=== PATIENT | male | born 1980 | race Caucasian/White ===

== ENCOUNTER 2018-09-21 07:44 | Emergency (ER) | payer BC ==
[2018-09-21 08:50] VITALS: BP 167/89
--- NOTE | 2018-09-21 14:17 | ED ---
Neck Pain - HPI Summary HPI Summary: Patient is a 38-year-old male who presents to the ED with left-sided neck pain times several days. He is endorsing pain to the left side of her neck radiating into the left scapula and intermittently radiating into the left chest wall. Symptoms are worse with rotation of the neck and worse with extension of the neck, better with flexion. Denies any trauma or injury. States this never happened to him before. He states symptoms are worse after sleeping and better with heat and movement. Denies any other injuries or concerns. Denies any numbness or tingling to the ipsilateral arm. Denies any weakness bilaterally. States he has full strength into the left arm. Continues to be able to rotate about the necks, flex and extend about the neck. Continues to be able to abduct, adduct, flex and extend the left shoulder. Has not taken any [id number] medications for relief. - History of Current Complaint Chief Complaint: EDNeckComplaint Stated Complaint: PINCHED NERVE PER PT Time Seen by Provider: 09/21/18 08:06 Hx Obtained From: Patient Onset/Duration Of Injury/Symptoms: Hours Timing: Constant Onset/Duration: Sudden Onset Severity Initially: Moderate Severity Currently: Moderate Pain Intensity: 2 Pain Scale Used: 0-10 Numeric Character: Aching Aggravating Factors: Nothing Alleviating Factors: Nothing Associated Signs & Symptoms: Positive: Negative - Risk Factors Meningitis Risk Factors: Negative - Allergies/Home Medications Allergies/Adverse Reactions: Allergies Allergy/AdvReac Type Severity Reaction Status Date / Time amoxicillin [From Augmentin] Allergy Swelling Verified 09/21/18 07:56 Of Face,Lips,& Throat clavulanic acid Allergy Swelling Verified 09/21/18 07:56 [From Augmentin] Of Face,Lips,& Throat PMH/Surg Hx/FS Hx/Imm Hx Previously Healthy: Yes Cardiovascular History: Denies: Hx Pacemaker/ICD Sensory History: Denies: Hx Hearing Aid Psychiatric History: Denies: Hx Panic Disorder - Immunization History Hx Pertussis Vaccination: No Immunizations Up to Date: Yes Infectious Disease History: No Infectious Disease History: Denies: Traveled Outside the [place] in Last 30 Days - Social History Occupation: Employed Full-time Lives: With Family Alcohol Use: Occasionally Hx Substance Use: No Substance Use Type: Reports: None Hx Tobacco Use: Yes Smoking Status (MU): Former Smoker Review of Systems Constitutional: Negative Negative: Fever, Chills, Fatigue, Skin Diaphoresis Negative: Palpitations, Chest Pain Negative: Shortness Of Breath, Cough Genitourinary: Negative Positive: no symptoms reported, see HPI Positive: Arthralgia - left sided neck pain, Myalgia Skin: Negative All Other Systems Reviewed And Are Negative: Yes Physical Exam Triage Information Reviewed: Yes Vital Signs On Initial Exam: Initial Vitals Temp Pulse Resp BP Pulse Ox 97.8 F 86 18 173/138 96 09/21/18 07:54 09/21/18 07:54 09/21/18 07:54 09/21/18 07:54 09/21/18 07:54 Vital Signs Reviewed: Yes Appearance: Positive: Well-Appearing, Well-Nourished Skin: Positive: Warm, Skin Color Reflects Adequate Perfusion Head/Face: Positive: Normal Head/Face Inspection Eyes: Positive: Normal, EOMI, CHRISS, Conjunctiva Clear Neck: Positive: Supple, No Lymphadenopathy Respiratory/Lung Sounds: Positive: Clear to Auscultation, Breath Sounds Present Cardiovascular: Positive: RRR, Pulses are Symmetrical in both Upper and Lower Extremities Musculoskeletal: Positive: Pain @ - left sided neck pain radiating to the L scapula and L sided chest wall worse with movement Neurological: Positive: Alert, Oriented to Person Place, Time, Speech Normal Psychiatric: Positive: Affect/Mood Appropriate AVPU Assessment: Alert Diagnostics - Vital Signs Vital Signs Temp Pulse Resp BP Pulse Ox 09/21/18 08:49 97.9 F 83 19 167/89 97 09/21/18 07:54 97.8 F 86 18 173/138 96 - Laboratory Lab Statement: Any lab studies that have been ordered have been reviewed, and results considered in the medical decision making process. Neck Course/Dx - Course Course Of Treatment: Patient is a 38-year-old male who presents to the ED with left-sided neck pain times several days. He is endorsing pain to the left side of her neck radiating into the left scapula and intermittently radiating into the left chest wall. Symptoms are worse with rotation of the neck and worse with extension of the neck, better with flexion. Denies any trauma or injury. States this never happened to him before. He states symptoms are worse after sleeping and better with heat and movement. Denies any other injuries or concerns. Denies any numbness or tingling to the ipsilateral arm. Denies any weakness bilaterally. States he has full strength into the left arm. Continues to be able to rotate about the necks, flex and extend about the neck. Continues to be able to abduct, adduct, flex and extend the left shoulder. Has not taken any [id number] medications for relief. Discussed with the patient this is likely cervical radiculopathy. Denies any numbness or tingling at this time to the arm. Continues to be able to rotate about the neck on physical examination. No other injuries or signs of trauma. Patient is encouraged to days rest, Flexeril, massage, heat and ibuprofen. - Diagnoses Differential Dx/HQI/PQRI: Positive: Sprain, Strain Provider Diagnoses: Cervical radicular pain Discharge - Sign-Out/Discharge Documenting (check all that apply): Patient Departure Patient Received Moderate/Deep Sedation with Procedure: No - Discharge Plan Condition: Stable Disposition: HOME Prescriptions: Cyclobenzaprine TAB* [Flexeril TAB*] 10 mg PO BID PRN #10 tab PRN Reason: Spasms Patient Education Materials: Cervical Radiculopathy (ED) Forms: *Work Release Referrals: Augustin Ulloa MD [Primary Care Provider] - Additional Instructions: Ibuprofen 600mg three times daily Moist heat to the area Flexeril twice daily for muscle pain Massage - Billing Disposition and Condition Condition: STABLE Disposition: Home
== END 2018-09-21 08:49 | disposition home or self-care (01) ==
LOC: ED 07:44
DX: M54.12 Radiculopathy, cervical region (principal); Z88.1 Allergy status to other antibiotic agents; Z87.891 Personal history of nicotine dependence
CPT/HCPCS: 99282

== ENCOUNTER 2018-11-19 04:18 | Inpatient (IN) | payer BC ==
[2018-11-19] MEDS ORDERED: Ketorolac INJ* 30 MG/ML 1 ML VIAL IV ONE (05:47)
[2018-11-19] MEDS ORDERED: NS 0.9% 1000 ML** 1,000 ML IV ONE (05:47)
[2018-11-19 05:48] LABS: ABS Eosinophils 0.1 10^3/ul (0-0.6); ABS Lymphocytes 0.8 10^3/ul (1.0-4.8); ABS Monocytes 0.5 10^3/ul (0-0.8); ABS Neutrophils 8.1 10^3/ul (1.5-7.7); Eosinophil % 1.1 %; Hematocrit 44 % (42-52); Hemoglobin 15.4 g/dL (14.0-18.0); Lymphocyte % 8.4 %; Mean Corpuscular HGB Conc 35 g/dL (31-36); Mean Corpuscular Hemoglobin 34 pg (27-31); Mean Corpuscular Volume 96 fL (80-94); Mean Platelet Volume 7.6 fL (7.4-10.4); Nucleated Red Blood Cells % 0.1; Platelet Count 225 10^3/uL (150-450); Red Blood Count 4.57 10^6 /uL (4.18-5.48); Red Cell Distribution Width 12 % (10-15); White Blood Count 9.5 10^3/uL (3.5-10.8)
[2018-11-19] MEDS ORDERED: Levofloxacin 750 MG IVPREMIX(* 750 MG/150 ML BAG IVPB ONE (05:48)
[2018-11-19 06:07] LABS: Troponin I 0.02 ng/mL (<0.04)
[2018-11-19 06:11] LABS: Albumin 3.8 g/dL (3.2-5.2); Albumin/Globulin Ratio 1.3 (1-3); BUN/Creatinine Ratio 12.7 (8-20); Calcium 8.7 mg/dL (8.6-10.3); EGFR African American 150.2 (>60); EGFR Non-African American 124.2 (>60); Globulin 2.9 g/dL (2-4); Total Bilirubin 0.9 mg/dL (0.2-1.0); Total Protein 6.7 g/dL (6.4-8.9)
--- NOTE | 2018-11-19 06:43 | ED ---
Shortness of Breath - HPI Summary HPI Summary: This patient is a 38 year old M presenting to [facility] accompanied by father with a chief complaints of shortness of breath, chest pain, cough 11/17/18 and spider bites 11/15/18. Patient states that he was treated for the two spider bites and prescribed doxycycline, which he has been compliant with. He states that 2 days ago he had cough, shortness of breath, and fevers at home. He took ibuprofen at home for fever. He became more short of breath and felt worse he came to the ED. Patient denies tobacco use or vaping, denies PMHX. The patient rates the pain 8/10 in severity per assessment clinician. - History of Current Complaint Chief Complaint: EDChestPainROMI Time Seen by Provider: 11/19/18 04:44 Hx Obtained From: Patient, Family/[employer] - father Onset/Duration: Lasting Hours, Still Present Timing: Constant Current Severity: Moderate Dyspnea At: Rest Aggravating Factors: Nothing Alleviating Factors: Nothing Associated Signs & Symptoms: Chest Pain Unrelated to Cough - Allergy/Home Medications Allergies/Adverse Reactions: Allergies Allergy/AdvReac Type Severity Reaction Status Date / Time amoxicillin [From Augmentin] Allergy Swelling Verified 11/19/18 04:43 Of Face,Lips,& Throat clavulanic acid Allergy Swelling Verified 11/19/18 04:43 [From Augmentin] Of Face,Lips,& Throat PMH/Surg Hx/FS Hx/Imm Hx Cardiovascular History: Denies: Hx Pacemaker/ICD Sensory History: Denies: Hx Legally Blind, Hx Deafness Opthamlomology History: Denies: Hx Legally Blind EENT History: Denies: Hx Deafness Psychiatric History: Denies: Hx Panic Disorder Infectious Disease History: No Infectious Disease History: Denies: Traveled Outside the [place] in Last 30 Days - Family History Known Family History: Positive: Hypertension Negative: Diabetes - Social History Alcohol Use: Occasionally Hx Substance Use: No Substance Use Type: Reports: None Hx Tobacco Use: Yes Smoking Status (MU): Never Smoked Tobacco Review of Systems Negative: Fever Positive: Chest Pain Positive: Shortness Of Breath, Cough Positive: Other - 2 Spider bites All Other Systems Reviewed And Are Negative: Yes Physical Exam - Summary Physical Exam Summary: Constitutional: Well-developed, Well-nourished, Alert. (-) Distressed Skin: Small lesions/area of erythema to left-sided of back HENT: Normocephalic; Atraumatic Eyes: Conjunctiva normal Neck: Musculoskeletal ROM normal neck. (-) JVD, (-) Stridor Cardio: Rhythm regular, tachycardic, Heart sounds normal; Intact distal pulses; Radial pulses are 2+ and symmetric. (-) Murmur Pulmonary/Chest wall: Mildly increased work of breathing, right-sided rhonchi, no wheezing Abd: Soft, (-) tenderness, (-) Distension, (-) Guarding, (-) Rebound Musculoskeletal: (-) Edema Lymph: (-) Cervical adenopathy Neuro: Alert, Oriented x3 Psych: Mood and affect Normal Triage Information Reviewed: Yes Vital Signs On Initial Exam: Initial Vitals Temp Pulse Resp BP Pulse Ox 99.1 F 116 20 120/95 92 11/19/18 04:20 11/19/18 04:20 11/19/18 04:20 11/19/18 04:20 11/19/18 04:20 Vital Signs Reviewed: Yes Diagnostics - Vital Signs Vital Signs Temp Pulse Resp BP Pulse Ox 11/19/18 05:36 110 125/86 91 11/19/18 05:06 110 121/77 93 11/19/18 05:00 194 93 11/19/18 04:38 110 93 11/19/18 04:36 110 131/91 91 11/19/18 04:20 99.1 F 116 20 120/95 92 - Laboratory Lab Results: Lab Results 11/19/18 11/19/18 11/19/18 Range/Units 05:37 05:38 05:38 WBC 9.5 (3.5-10.8) 10^3/uL RBC 4.57 (4.18-5.48) 10^6 /uL Hgb 15.4 (14.0-18.0) g/dL Hct 44 (42-52) % MCV 96 H (80-94) fL MCH 34 H (27-31) pg MCHC 35 (31-36) g/dL RDW 12 (10-15) % Plt Count 225 (150-450) 10^3/uL MPV 7.6 (7.4-10.4) fL Neut % (Auto) 85.5 % Lymph % (Auto) 8.4 % Teller % (Auto) 4.8 % Eos % (Auto) 1.1 % Baso % (Auto) 0.2 % Absolute Neuts (auto) 8.1 H (1.5-7.7) 10^3/ul Absolute Lymphs (auto) 0.8 L (1.0-4.8) 10^3/ul Absolute Monos (auto) 0.5 (0-0.8) 10^3/ul Absolute Eos (auto) 0.1 (0-0.6) 10^3/ul Absolute Basos (auto) 0.0 (0-0.2) 10^3/ul Absolute Nucleated RBC 0.0 10^3/ul Nucleated RBC % 0.1 Sodium 136 (135-145) mmol/L Potassium 4.0 (3.5-5.0) mmol/L Chloride 104 (101-111) mmol/L Carbon Dioxide 26 (22-32) mmol/L Anion Gap 6 (2-11) mmol/L BUN 9 (6-24) mg/dL Creatinine 0.71 (0.67-1.17) mg/dL Est GFR ( Amer) 150.2 (>60) Est GFR (Non-Af Amer) 124.2 (>60) BUN/Creatinine Ratio 12.7 (8-20) Glucose 114 H (70-100) mg/dL Calcium 8.7 (8.6-10.3) mg/dL Total Bilirubin 0.90 (0.2-1.0) mg/dL AST 15 (13-39) U/L ALT 18 (7-52) U/L Alkaline Phosphatase 55 (34-104) U/L Troponin I 0.02 (<0.04) ng/mL B-Natriuretic Peptide 66 (<=100) pg/mL Total Protein 6.7 (6.4-8.9) g/dL Albumin 3.8 (3.2-5.2) g/dL Globulin 2.9 (2-4) g/dL Albumin/Globulin Ratio 1.3 (1-3) Result Diagrams: 11/19/18 05:37 11/19/18 05:38 Lab Statement: Any lab studies that have been ordered have been reviewed, and results considered in the medical decision making process. - Radiology Chest Xray Radiology Interpretation Completed By: ED Physician Summary of Radiographic Findings: Chest Xray reveals, per ED Physician, Right upper lobe consolidation. Pending offical report. - EKG 0428 Cardiac Rate: Tachycardia - 112 bpm EKG Rhythm: Sinus Tachycardia Summary of EKG Findings: Sinus Tachycardia at 112 bpm Course/Dx - Course Course Of Treatment: 38 year-old male with recent the lightest on doxycycline presents with shortness of breath, cough. Shortness of breath ddx: Most likely PNA - right greater than left rhonchi, hypoxia, fevers at home. Will treat w levaquin. Also consider: COPD exacerbation/asthma - no h/o COPD, no wheezing on exam. Low suspicion. PTX - breath sounds equal, no risk factors for PTX, CXR w/o e/o PTX. ACS -CP with cough no EKG changes, initial trop not elevated. Low suspicion. CHF - no h/o CHF, no LANZA or orthopnea, no BLE edema, CXR w/o pulmonary edema. PE - no risk factors for PE, no unilateral leg swelling - Diagnoses Provider Diagnoses: Right upper lobe pneumonia - Physician Notifications Discussed Care of Patient With: Oralia Andre Time Discussed With Above Provider: 06:48 Instructed by Provider To: Other - Patient's case was discussed with Dr. Andre, Dr. Andre accepts for admission Discharge ED - Sign-Out/Discharge Documenting (check all that apply): Patient Departure - admitted Patient Received Moderate/Deep Sedation with Procedure: No - Discharge Plan Condition: Stable Disposition: ADMITTED TO [facility] Referrals: Augustin Ulloa MD [Primary Care Provider] - - Billing Disposition and Condition Condition: STABLE Disposition: Admitted to [facility] - Attestation Statements Document Initiated by Scribe: Yes Documenting Scribe: Julianne Lewis Provider For Whom Rocio is Documenting (Include Credential): Laura Rodriguez MD Scribe Attestation: Suzy, Julianne Lewis, scribed for Laura Rodriguez MD on 02/25 at 0739. Scribe Documentation Reviewed: Yes Provider Attestation: The documentation as recorded by the scribe, Julianne Lewis accurately reflects the service I personally performed and the decisions made by me, Laura Rodriguez MD Status of Scribe Document: Viewed
[2018-11-19 08:12] LABS: C Reactive Protein 193.69 mg/L (<8.01)
[2018-11-19] MEDS ORDERED: NS 0.9% 1000 ML** 1,000 ML IV SCH (08:15)
[2018-11-19 08:18] LABS: Influenza A Molecular NEGATIVE (Negative); Influenza B Molecular NEGATIVE (Negative)
--- NOTE | 2018-11-19 11:57 | HP ---
CC: Dr. Ulloa * HISTORY AND PHYSICAL: DATE OF ADMISSION: 11/19/18 PRIMARY CARE PROVIDER: Dr. Ulloa CHIEF COMPLAINT: Shortness of breath and chest pain. HISTORY OF PRESENT ILLNESS: Mr. Calderon is a 38-year-old male, morbidly obese, who had been having problems with cough, low-grade fevers, chills, and pleuritic chest pain when coughing in bilateral lower chest in the past couple of days. A couple days of ago, he also went to see his primary care provider and was noted to have "spider bites," for which he got doxycycline. He states he has been having some problems with pruritic areas on his left side of the chest and and left leg for the past several days. He noted that they were more red 2 days ago and went to see his see his primary care provider for that. He does have area of erythema and mild cellulitis on his left calf. In addition to the above, the patient also while evaluated in the ED was noted to have tachycardia and a large infiltrate in the right upper lobe. He is going to be placed on observation for pneumonia. PAST MEDICAL HISTORY: The patient was diagnosed with vitiligo just recently over the past year. Otherwise, he has had no surgeries, no hospitalizations, and he is taking occasional Flexeril for lower back pain. MEDICATIONS: At home include Flexeril 10 mg p.o. b.i.d. p.r.n. pain and spasm. ALLERGIES: AMOXICILLIN and CLAVULANIC ACID. FAMILY HISTORY: Positive for diabetes in father and unknown cancer in grandfather on paternal side. SOCIAL HISTORY: The patient drinks occasionally with his friends. Denies daily alcohol intake. Denies any drug or smoking tobacco history. 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 He lives alone. His children , ages 10 and 13, are with him every other week. His surrogate, he names his mom, Becky Calderon, phone number [phone]. REVIEW OF SYSTEMS: Please see the history of present illness. The remaining 12 systems were reviewed with the patient and were otherwise negative. PHYSICAL EXAMINATION GENERAL: The patient is a very pleasant 38-year-old obese male who is in no acute distress, alert, awake, and oriented x3. VITAL SIGNS: Blood pressure of 125/78, heart rate of 106 and regular, respiratory rate 20, oxygen saturation 92% on room air, temperature of 99.1. HEENT: Head atraumatic and normocephalic. Eyes: Pupils are equal and reactive to light and accommodation. Oropharynx: Clear. Mucosa moist. NECK: Supple. No JVD. No bruits bilaterally. RESPIRATORY: Rhonchi over the entire right lung on auscultation. CARDIOVASCULAR: Regular rate and rhythm. No murmur. ABDOMEN: Soft and nontender. Bowel sounds are present in all 4 quadrants. EXTREMITIES: There is no edema. Pulses are +2 bilaterally. No clubbing or cyanosis. SKIN: On evaluation of the skin, the patient has 1 excoriated, covered with eschar lesion approximately 1 x 0.5 cm on the left posterior calf that is surrounded with an area of irritated skin, may be mild cellulitis of approximately 10 cm in diameter, with no significant streaking, appears to be more skin irritation due to scratching. The patient also has 2 similar appearing areas, also covered with eschar, overlying the left chest close to the anterior axillary line at the level of the nipple. Those areas are also excoriated and covered with eschar. No cellulitis evident. The patient has discoloration of his skin in the bilateral hands related to vitiligo. PSYCHIATRIC EVALUATION: Oriented x3 with no evidence of anxiety or depression. DIAGNOSTIC STUDIES/LAB DATA: Shows sodium of 136, potassium 4.0, chloride 104, carbon dioxide 26, BUN 9, creatinine 0.71. Liver function tests unremarkable. Troponin of 0.02. C-reactive protein pending. CBC: White blood cell count of 9.5, hemoglobin of 15.4, hematocrit of 44, MCV of 96, platelets of 225. Portable chest x-ray, impression: "Right upper lung consolidation. Recommend to follow up until resolution to exclude underlying pulmonary parenchymal pathology." ASSESSMENT AND PLAN: 1. The patient presents with pneumonia. He is tachycardic, but he is not significantly tachypneic to meet sepsis criteria. He has significant right upper lobe infiltrate. He is going to be placed on ceftriaxone and azithromycin. He received Levaquin in the emergency room. The patient's sputum cultures are going to be obtained as well as urinary legionella and Strep pneumo antigens. He is going to be placed on overnight observation. 2. In regards to the patient's "spider bites." There appears to be area of excoriations and I am not sure if they are insect bites or may be eczema-like lesions. At that point, he may have mild cellulitis in the left calf, which hopefully will be treated with antibiotics used for the pneumonia. It does not appear to be related to tick bites. 3. For DVT prophylaxis. The patient is ambulatory and no risk. 4. Code status is full. His surrogate is mother. TIME SPENT: Approximately 62 minutes was spent on admission of the patient, more than half of that time was spent [id number] with the patient during the interview and physical exam. [id number]/[facility] #: [id number] MTDD
[2018-11-19] MEDS ORDERED: Acetaminophen TAB* 325 MG PO PRN (16:47)
[2018-11-19] MEDS: cefTRIAXone(*) 1 GM in NS 0.9% 50 ML* 50 ML IVPB SCH (17:09)
[2018-11-19] MEDS: Azithromycin 500 mg/250 ml NS 500 MG/250 ML BAG IVPB SCH (17:52)
[2018-11-20 06:35] LABS: ABS Eosinophils 0.1 10^3/ul (0-0.6); ABS Lymphocytes 0.9 10^3/ul (1.0-4.8); ABS Monocytes 0.4 10^3/ul (0-0.8); Eosinophil % 2.2 %; Hematocrit 41 % (42-52); Hemoglobin 14.3 g/dL (14.0-18.0); Lymphocyte % 14.1 %; Mean Corpuscular HGB Conc 35 g/dL (31-36); Mean Corpuscular Hemoglobin 34 pg (27-31); Mean Corpuscular Volume 97 fL (80-94); Mean Platelet Volume 7.9 fL (7.4-10.4); Platelet Count 219 10^3/uL (150-450); Red Blood Count 4.24 10^6 /uL (4.18-5.48); Red Cell Distribution Width 12 % (10-15); White Blood Count 6.4 10^3/uL (3.5-10.8)
[2018-11-20 06:51] LABS: BUN/Creatinine Ratio 13.3 (8-20); Calcium 8.3 mg/dL (8.6-10.3); EGFR Non-African American 116.6 (>60); Potassium 3.9 mmol/L (3.5-5.0)
--- NOTE | 2018-11-20 13:09 | PN ---
Subjective Date of Service: 11/20/18 Interval History: Pt feels better, still coughing and c/o pleuritic CP when coughing Objective Active Medications: Acetaminophen (Tylenol Tab*) 650 mg PO Q4H PRN PRN Reason: PAIN-MILD/TEMP >/= 100.4 Last Admin: 11/19/18 17:08 Dose: 650 mg Cyclobenzaprine HCl (Flexeril Tab*) 10 mg PO BID PRN PRN Reason: SPASMS Azithromycin (Zithromax 500 Mg/250 Ml) 500 mg in 250 mls @ 250 mls/hr IVPB Q24H [facility] Last Admin: 11/19/18 17:52 Dose: 250 mls/hr Ceftriaxone Sodium 1 gm/ (Sodium Chloride) 50 mls @ 100 mls/hr IVPB Q24H [facility] Last Admin: 11/19/18 17:09 Dose: 100 mls/hr Vital Signs - 8 hr 11/20/18 07:15 Temperature 98.4 F Pulse Rate 90 Respiratory 24 Rate Blood Pressure 126/71 (mmHg) O2 Sat by Pulse 96 Oximetry Oxygen Devices in Use Now: None, Nasal Cannula Appearance: 38 yo M in nAD, aAOx3 Eyes: No Scleral Icterus, PERRLA Ears/Nose/Mouth/Throat: NL Teeth, Lips, Gums, Mucous Membranes Moist Neck: NL Appearance and Movements; NL JVP Respiratory: Symmetrical Chest Expansion and Respiratory Effort, - - rhonchi breana RUL Cardiovascular: NL Sounds; No Murmurs; No JVD, RRR Abdominal: NL Sounds; No Tenderness; No Distention Lymphatic: No Cervical Adenopathy Extremities: No Edema, No Clubbing, Cyanosis Skin: No Rash or Ulcers, No Nodules or Sclerosis, - - vitilligo noted on b/l hands Neurological: Alert and Oriented x 3, NL Muscle Strength and Tone Result Diagrams: 11/20/18 05:53 11/20/18 05:53 Additional Lab and Data: Lab Results 11/19/18 11/19/18 11/19/18 Range/Units 05:37 05:38 05:38 WBC 9.5 (3.5-10.8) 10^3/uL RBC 4.57 (4.18-5.48) 10^6 /uL Hgb 15.4 (14.0-18.0) g/dL Hct 44 (42-52) % MCV 96 H (80-94) fL MCH 34 H (27-31) pg MCHC 35 (31-36) g/dL RDW 12 (10-15) % Plt Count 225 (150-450) 10^3/uL MPV 7.6 (7.4-10.4) fL Neut % (Auto) 85.5 % Lymph % (Auto) 8.4 % Mckinley % (Auto) 4.8 % Eos % (Auto) 1.1 % Baso % (Auto) 0.2 % Absolute Neuts (auto) 8.1 H (1.5-7.7) 10^3/ul Absolute Lymphs (auto) 0.8 L (1.0-4.8) 10^3/ul Absolute Monos (auto) 0.5 (0-0.8) 10^3/ul Absolute Eos (auto) 0.1 (0-0.6) 10^3/ul Absolute Basos (auto) 0.0 (0-0.2) 10^3/ul Absolute Nucleated RBC 0.0 10^3/ul Nucleated RBC % 0.1 Sodium 136 (135-145) mmol/L Potassium 4.0 (3.5-5.0) mmol/L Chloride 104 (101-111) mmol/L Carbon Dioxide 26 (22-32) mmol/L Anion Gap 6 (2-11) mmol/L BUN 9 (6-24) mg/dL Creatinine 0.71 (0.67-1.17) mg/dL Est GFR ( Amer) 150.2 (>60) Est GFR (Non-Af Amer) 124.2 (>60) BUN/Creatinine Ratio 12.7 (8-20) Glucose 114 H (70-100) mg/dL Calcium 8.7 (8.6-10.3) mg/dL Total Bilirubin 0.90 (0.2-1.0) mg/dL AST 15 (13-39) U/L ALT 18 (7-52) U/L Alkaline Phosphatase 55 (34-104) U/L Troponin I 0.02 (<0.04) ng/mL B-Natriuretic Peptide 66 (<=100) pg/mL Total Protein 6.7 (6.4-8.9) g/dL Albumin 3.8 (3.2-5.2) g/dL Globulin 2.9 (2-4) g/dL Albumin/Globulin Ratio 1.3 (1-3) Microbiology and Other Data: Microbiology 11/20/18 10:35 Gram Stain - Final Sputum 11/19/18 18:30 Legionella Urinary Antigen - Final Urine Negative Legionella Antigen Streptococcus pneumoniae Ag Screen - Final Negative S. pneumo Antigen 11/19/18 06:07 Aerobic Blood Culture - Preliminary Blood Venous No Growth Day 1 Anaerobic Blood Culture - Preliminary No Growth Day 1 11/19/18 06:07 Aerobic Blood Culture - Preliminary Blood Venous No Growth Day 1 Anaerobic Blood Culture - Preliminary No Growth Day 1 Assess/Plan/Problems-Billing Assessment: 38 yo M presents with RUL PNA and hypoxemia - Patient Problems (1) Pneumonia Comment: community acquired. cont Ceftriaxone/Azithro Blood cx neg, sputum cx pending Strep pneumo, legionella antigen neg Today when ambulating 02 sats dropped tp 88%-due to hypoxemia will cont to treat with IV antibiotics x one more day. IS and flutter valve ordered (2) DVT prophylaxis Comment: ambulation, low risk Status and Disposition: OBV will be changed to inpatient
[2018-11-20] MEDS: cefTRIAXone(*) 1 GM in NS 0.9% 50 ML* 50 ML IVPB SCH (16:42)
[2018-11-20] MEDS: Azithromycin 500 mg/250 ml NS 500 MG/250 ML BAG IVPB SCH (17:30)
[2018-11-20] MEDS ORDERED: diPHENhydraMINE PO* 25 MG PO PRN (18:59)
[2018-11-20] MEDS ORDERED: Hydrocortisone 1% CREAM* 30 GM TUBE TOPICAL SCH (21:00)
[2018-11-20] MEDS: Cyclobenzaprine TAB* 10 MG PO PRN (22:47)
[2018-11-21] MEDS: hydrOXYzine HCL TAB* 25 MG PO PRN ×2 (00:41→08:08)
[2018-11-21] MEDS: Triamcinolone 0.5% OINT * 15 GM TUBE TOPICAL SCH ×3 (01:30→20:21)
[2018-11-21] MEDS: Cyclobenzaprine TAB* 10 MG PO PRN (08:03)
[2018-11-21] MEDS: Levofloxacin 750 MG IVPREMIX(* 750 MG/150 ML BAG IVPB SCH (08:03)
--- NOTE | 2018-11-21 10:15 | PN ---
Subjective Date of Service: 11/21/18 Interval History: last night pt developed rash on his trunk and proximal LE's, feels that his ear and forehead was swollen but that resolved. Benadryl "does not wok" for him and Atarax makes him sleepy. Breathing is "OK", still on 02,m but coughing less. Ceftriaxone and Azithromycin stopped last night. Levaquin started today Objective Active Medications: Acetaminophen (Tylenol Tab*) 650 mg PO Q4H PRN PRN Reason: PAIN-MILD/TEMP >/= 100.4 Last Admin: 11/19/18 17:08 Dose: 650 mg Cyclobenzaprine HCl (Flexeril Tab*) 10 mg PO BID PRN PRN Reason: SPASMS Last Admin: 11/21/18 08:03 Dose: 10 mg Famotidine (Pepcid Tab*) 20 mg PO BID [facility] Hydroxyzine HCl (Atarax Tab*) 25 mg PO Q6H PRN PRN Reason: rash, pruritis Last Admin: 11/21/18 08:08 Dose: 25 mg Levofloxacin/Dextrose (Levaquin 750 Mg Ivpremix(*)) 750 mg in 150 mls @ 100 mls /hr IVPB Q24H [facility]; Protocol Last Admin: 11/21/18 08:03 Dose: 100 mls/hr Methylprednisolone Sodium Succinate (Solu-Medrol 40 Mg) 40 mg IV ONCE ONE Stop: 11/21/18 12:01 Prednisone (Deltasone Tab*) 50 mg PO DAILY [facility] Triamcinolone Acetonide (Triamcinolone 0.5% Oint *) 1 applic TOPICAL BID [facility] Last Admin: 11/21/18 08:03 Dose: 1 applic Vital Signs - 8 hr 11/21/18 11/21/18 11/21/18 03:16 07:15 08:03 Temperature 98.3 F 98.4 F Pulse Rate 110 107 Respiratory 25 22 18 Rate Blood Pressure 101/60 91/65 (mmHg) O2 Sat by Pulse 96 93 Oximetry Oxygen Devices in Use Now: Nasal Cannula Appearance: 38 yo m in nAD, AAOx3 Eyes: No Scleral Icterus, PERRLA Ears/Nose/Mouth/Throat: NL Teeth, Lips, Gums, Mucous Membranes Moist Neck: NL Appearance and Movements; NL JVP, Trachea Midline Respiratory: Symmetrical Chest Expansion and Respiratory Effort, - - scant rhonchi at RUL Cardiovascular: NL Sounds; No Murmurs; No JVD, RRR Abdominal: NL Sounds; No Tenderness; No Distention Lymphatic: No Cervical Adenopathy Extremities: No Edema, No Clubbing, Cyanosis Skin: No Nodules or Sclerosis, - - diffuse erythema with more accentuated borders on trunk, back, upper thighs-resembling erythema multiforme Neurological: Alert and Oriented x 3, NL Muscle Strength and Tone Result Diagrams: 11/20/18 05:53 11/20/18 05:53 Additional Lab and Data: Lab Results 11/19/18 11/19/18 11/19/18 Range/Units 05:37 05:38 05:38 WBC 9.5 (3.5-10.8) 10^3/uL RBC 4.57 (4.18-5.48) 10^6 /uL Hgb 15.4 (14.0-18.0) g/dL Hct 44 (42-52) % MCV 96 H (80-94) fL MCH 34 H (27-31) pg MCHC 35 (31-36) g/dL RDW 12 (10-15) % Plt Count 225 (150-450) 10^3/uL MPV 7.6 (7.4-10.4) fL Neut % (Auto) 85.5 % Lymph % (Auto) 8.4 % [place] % (Auto) 4.8 % Eos % (Auto) 1.1 % Baso % (Auto) 0.2 % Absolute Neuts (auto) 8.1 H (1.5-7.7) 10^3/ul Absolute Lymphs (auto) 0.8 L (1.0-4.8) 10^3/ul Absolute Monos (auto) 0.5 (0-0.8) 10^3/ul Absolute Eos (auto) 0.1 (0-0.6) 10^3/ul Absolute Basos (auto) 0.0 (0-0.2) 10^3/ul Absolute Nucleated RBC 0.0 10^3/ul Nucleated RBC % 0.1 Sodium 136 (135-145) mmol/L Potassium 4.0 (3.5-5.0) mmol/L Chloride 104 (101-111) mmol/L Carbon Dioxide 26 (22-32) mmol/L Anion Gap 6 (2-11) mmol/L BUN 9 (6-24) mg/dL Creatinine 0.71 (0.67-1.17) mg/dL Est GFR ( Amer) 150.2 (>60) Est GFR (Non-Af Amer) 124.2 (>60) BUN/Creatinine Ratio 12.7 (8-20) Glucose 114 H (70-100) mg/dL Calcium 8.7 (8.6-10.3) mg/dL Total Bilirubin 0.90 (0.2-1.0) mg/dL AST 15 (13-39) U/L ALT 18 (7-52) U/L Alkaline Phosphatase 55 (34-104) U/L Troponin I 0.02 (<0.04) ng/mL B-Natriuretic Peptide 66 (<=100) pg/mL Total Protein 6.7 (6.4-8.9) g/dL Albumin 3.8 (3.2-5.2) g/dL Globulin 2.9 (2-4) g/dL Albumin/Globulin Ratio 1.3 (1-3) Microbiology and Other Data: Microbiology 11/20/18 10:35 Gram Stain - Final Sputum 11/19/18 18:30 Legionella Urinary Antigen - Final Urine Negative Legionella Antigen Streptococcus pneumoniae Ag Screen - Final Negative S. pneumo Antigen 11/19/18 06:07 Aerobic Blood Culture - Preliminary Blood Venous No Growth Day 1 Anaerobic Blood Culture - Preliminary No Growth Day 1 11/19/18 06:07 Aerobic Blood Culture - Preliminary Blood Venous No Growth Day 1 Anaerobic Blood Culture - Preliminary No Growth Day 1 Assess/Plan/Problems-Billing Assessment: 38 yo M presents with RUL PNA and hypoxemia - Patient Problems (1) Pneumonia Comment: community acquired. Ceftriaxone/Azithro sopped due to rah on 11/20/18, Levaquin started Blood cx neg, sputum cx pending Strep pneumo, legionella antigen neg IS and flutter valve cont (2) Erythema multiforme Comment: likely due to Ceftriaxone, but both Ceftriaxone and Azithromycin stopped. Levaquin started. Cont triamcinalone cream, start PO steroids(after an initial dose of Solu Medrol ), start Pepcid. will monitor x 1 more day for improvement before discharge (3) DVT prophylaxis Comment: ambulation, low risk Status and Disposition: OBV changed to inpatient
[2018-11-21] MEDS: Famotidine TAB* 20 MG PO SCH ×2 (11:15→20:18)
[2018-11-21 11:35] LABS: ABS Lymphocytes 0.9 10^3/ul (1.0-4.8); ABS Monocytes 0.3 10^3/ul (0-0.8); ABS Neutrophils 7.6 10^3/ul (1.5-7.7); Eosinophil % 0.3 %; Hematocrit 44 % (42-52); Hemoglobin 15.4 g/dL (14.0-18.0); Lymphocyte % 9.9 %; Mean Corpuscular HGB Conc 35 g/dL (31-36); Mean Corpuscular Hemoglobin 34 pg (27-31); Mean Corpuscular Volume 97 fL (80-94); Mean Platelet Volume 7.7 fL (7.4-10.4); Nucleated Red Blood Cells % 0.1; Platelet Count 268 10^3/uL (150-450); Red Blood Count 4.53 10^6 /uL (4.18-5.48); Red Cell Distribution Width 12 % (10-15); White Blood Count 8.8 10^3/uL (3.5-10.8)
[2018-11-21] MEDS ORDERED: methylPREDNISolone SOD 40 MG* 1 ML VIAL IV ONE (12:00)
[2018-11-21 12:09] LABS: BUN/Creatinine Ratio 16.3 (8-20); Calcium 8.3 mg/dL (8.6-10.3); EGFR African American 130.9 (>60); EGFR Non-African American 108.2 (>60)
[2018-11-21] MEDS: methylPREDNISolone 125 MG* 2 ML VIAL IV SCH (20:18)
[2018-11-22] MEDS: methylPREDNISolone 125 MG* 2 ML VIAL IV SCH ×3 (02:55→21:29)
[2018-11-22] MEDS ORDERED: Albuterol/Ipratropium NEB.SOL* Albuterol 2.5 MG/Ipratropium 0.5 MG 3 ML INH PRN (08:32)
[2018-11-22] MEDS ORDERED: Albuterol/Ipratropium NEB.SOL* Albuterol 2.5 MG/Ipratropium 0.5 MG 3 ML INH ONE (08:32)
[2018-11-22] MEDS ORDERED: predniSONE TAB* 50 MG PO SCH (09:00)
[2018-11-22] MEDS: Levofloxacin 750 MG IVPREMIX(* 750 MG/150 ML BAG IVPB SCH (09:09)
[2018-11-22] MEDS: Famotidine TAB* 20 MG PO SCH (09:25)
[2018-11-22] MEDS: Triamcinolone 0.025% OINT * 15 GM TUBE TOPICAL SCH ×2 (09:47→21:45)
[2018-11-22] MEDS: Triamcinolone 0.5% OINT * 15 GM TUBE TOPICAL SCH (10:49)
--- NOTE | 2018-11-22 11:12 | PN ---
Subjective Date of Service: 11/22/18 Interval History: Pt feels well, no cough, still LANZA. Rash on back and abdomen is resolving, but pt still has lower lip edema-mild, and hives on R arm-new Objective Active Medications: Acetaminophen (Tylenol Tab*) 650 mg PO Q4H PRN PRN Reason: PAIN-MILD/TEMP >/= 100.4 Last Admin: 11/19/18 17:08 Dose: 650 mg Albuterol/Ipratropium (Duoneb (Albuterol 2.5 Mg/Ipratropium 0.5 Mg)) 1 neb INH Q4H PRN PRN Reason: SOB/WHEEZING Cyclobenzaprine HCl (Flexeril Tab*) 10 mg PO BID PRN PRN Reason: SPASMS Last Admin: 11/21/18 08:03 Dose: 10 mg Famotidine (Pepcid Tab*) 20 mg PO BID [facility] Last Admin: 11/22/18 09:25 Dose: 20 mg Hydroxyzine HCl (Atarax Tab*) 25 mg PO Q6H PRN PRN Reason: rash, pruritis Last Admin: 11/21/18 08:08 Dose: 25 mg Levofloxacin/Dextrose (Levaquin 750 Mg Ivpremix(*)) 750 mg in 150 mls @ 100 mls /hr IVPB Q24H [facility]; Protocol Last Admin: 11/22/18 09:09 Dose: 100 mls/hr Methylprednisolone Sodium Succinate (Solu-Medrol 125mg *) 60 mg IV Q8H [facility] Last Admin: 11/22/18 02:55 Dose: 60 mg Triamcinolone Acetonide (Triamcinolone 0.025% Oint *) 1 applic TOPICAL BID [facility] Last Admin: 11/22/18 09:47 Dose: 1 applic Oxygen Devices in Use Now: Nasal Cannula Appearance: 38 yo M in nAD, AAOx3 Eyes: No Scleral Icterus, PERRLA Ears/Nose/Mouth/Throat: NL Teeth, Lips, Gums, Mucous Membranes Moist Neck: NL Appearance and Movements; NL JVP Respiratory: Symmetrical Chest Expansion and Respiratory Effort, Clear to Auscultation Cardiovascular: NL Sounds; No Murmurs; No JVD Abdominal: NL Sounds; No Tenderness; No Distention Lymphatic: No Cervical Adenopathy Extremities: No Clubbing, Cyanosis Skin: No Nodules or Sclerosis, - - rash on back and abd is recolving, lower lip erythema and mild edema noted, no oral ulcers. R arm hives noted Neurological: Alert and Oriented x 3, NL Muscle Strength and Tone Result Diagrams: 11/21/18 11:22 11/21/18 11:22 Additional Lab and Data: Lab Results 11/19/18 11/19/18 11/19/18 Range/Units 05:37 05:38 05:38 WBC 9.5 (3.5-10.8) 10^3/uL RBC 4.57 (4.18-5.48) 10^6 /uL Hgb 15.4 (14.0-18.0) g/dL Hct 44 (42-52) % MCV 96 H (80-94) fL MCH 34 H (27-31) pg MCHC 35 (31-36) g/dL RDW 12 (10-15) % Plt Count 225 (150-450) 10^3/uL MPV 7.6 (7.4-10.4) fL Neut % (Auto) 85.5 % Lymph % (Auto) 8.4 % [place] % (Auto) 4.8 % Eos % (Auto) 1.1 % Baso % (Auto) 0.2 % Absolute Neuts (auto) 8.1 H (1.5-7.7) 10^3/ul Absolute Lymphs (auto) 0.8 L (1.0-4.8) 10^3/ul Absolute Monos (auto) 0.5 (0-0.8) 10^3/ul Absolute Eos (auto) 0.1 (0-0.6) 10^3/ul Absolute Basos (auto) 0.0 (0-0.2) 10^3/ul Absolute Nucleated RBC 0.0 10^3/ul Nucleated RBC % 0.1 Sodium 136 (135-145) mmol/L Potassium 4.0 (3.5-5.0) mmol/L Chloride 104 (101-111) mmol/L Carbon Dioxide 26 (22-32) mmol/L Anion Gap 6 (2-11) mmol/L BUN 9 (6-24) mg/dL Creatinine 0.71 (0.67-1.17) mg/dL Est GFR ( Amer) 150.2 (>60) Est GFR (Non-Af Amer) 124.2 (>60) BUN/Creatinine Ratio 12.7 (8-20) Glucose 114 H (70-100) mg/dL Calcium 8.7 (8.6-10.3) mg/dL Total Bilirubin 0.90 (0.2-1.0) mg/dL AST 15 (13-39) U/L ALT 18 (7-52) U/L Alkaline Phosphatase 55 (34-104) U/L Troponin I 0.02 (<0.04) ng/mL B-Natriuretic Peptide 66 (<=100) pg/mL Total Protein 6.7 (6.4-8.9) g/dL Albumin 3.8 (3.2-5.2) g/dL Globulin 2.9 (2-4) g/dL Albumin/Globulin Ratio 1.3 (1-3) Microbiology and Other Data: Microbiology 11/20/18 10:35 Gram Stain - Final Sputum 11/19/18 18:30 Legionella Urinary Antigen - Final Urine Negative Legionella Antigen Streptococcus pneumoniae Ag Screen - Final Negative S. pneumo Antigen 11/19/18 06:07 Aerobic Blood Culture - Preliminary Blood Venous No Growth Day 1 Anaerobic Blood Culture - Preliminary No Growth Day 1 11/19/18 06:07 Aerobic Blood Culture - Preliminary Blood Venous No Growth Day 1 Anaerobic Blood Culture - Preliminary No Growth Day 1 Assess/Plan/Problems-Billing Assessment: 38 yo M presents with RUL PNA and hypoxemia - Patient Problems (1) Pneumonia Comment: community acquired. today pt's corwin s are clear on ascultation Ceftriaxone/Azithro stopped due to rash on 11/20/18, Levaquin started 11/21/18 Blood cx neg, sputum cx pending Strep pneumo, legionella antigen neg IS and flutter valve cont (2) Erythema multiforme Comment: Pt's rash is overall better, but today he has hives on R arm which is new. Also due to lip edema -will cont IV steroids for now. likely due to Ceftriaxone, but both Ceftriaxone and Azithromycin stopped. Levaquin started 11/21 Cont triamcinalone cream, cont Solu Medrol. will monitor x 1 more day for improvement before discharge (3) DVT prophylaxis Comment: ambulation, low risk Status and Disposition: OBV changed to inpatient
[2018-11-22] MEDS: hydrOXYzine HCL TAB* 25 MG PO PRN ×2 (13:05→21:54)
[2018-11-22] MEDS: CMC:LoraTADine TAB(NF) 10 MG TAB (AUTOSUB to CETIRIZINE) PO SCH (21:18)
[2018-11-22] MEDS: Famotidine IV* 10 MG/ML 2 ML (20 mg) IV SLOW PU SCH (21:27)
[2018-11-23] MEDS: methylPREDNISolone 125 MG* 2 ML VIAL IV SCH ×3 (04:15→20:04)
[2018-11-23] MEDS: hydrOXYzine HCL TAB* 25 MG PO PRN (05:50)
[2018-11-23] MEDS: Famotidine IV* 10 MG/ML 2 ML (20 mg) IV SLOW PU SCH ×2 (08:36→20:05)
[2018-11-23] MEDS: DOXYcycline CAP(*) 100 MG PO SCH ×3 (08:36→20:04)
[2018-11-23] MEDS: CMC:LoraTADine TAB(NF) 10 MG TAB (AUTOSUB to CETIRIZINE) PO SCH (08:36)
[2018-11-23] MEDS: Triamcinolone 0.025% OINT * 15 GM TUBE TOPICAL SCH ×2 (08:38→23:15)
--- NOTE | 2018-11-23 10:32 | PN ---
Subjective Date of Service: 11/23/18 Interval History: Pt is anxious about his rash that "won't stop itching" cough and SOB resolved today he noted a darker spot on the skin of his left calf that is colder to palpation Objective Active Medications: Acetaminophen (Tylenol Tab*) 650 mg PO Q4H PRN PRN Reason: PAIN-MILD/TEMP >/= 100.4 Last Admin: 11/19/18 17:08 Dose: 650 mg Albuterol/Ipratropium (Duoneb (Albuterol 2.5 Mg/Ipratropium 0.5 Mg)) 1 neb INH Q4H PRN PRN Reason: SOB/WHEEZING Cyclobenzaprine HCl (Flexeril Tab*) 10 mg PO BID PRN PRN Reason: SPASMS Last Admin: 11/21/18 08:03 Dose: 10 mg Doxycycline Hyclate (Vibramycin Cap(*)) 100 mg PO BID [facility] Last Admin: 11/23/18 08:41 Dose: 100 mg Famotidine (Pepcid Iv*) 20 mg IV SLOW PU BID [facility] Last Admin: 11/23/18 08:36 Dose: 20 mg Hydroxyzine HCl (Atarax Tab*) 25 mg PO Q6H PRN PRN Reason: rash, pruritis Last Admin: 11/23/18 05:50 Dose: 25 mg Loratadine (Claritin Tab(Nf)) 10 mg PO BID [facility] Last Admin: 11/23/18 08:36 Dose: 10 mg Methylprednisolone Sodium Succinate (Solu-Medrol 125mg *) 60 mg IV Q8H [facility] Last Admin: 11/23/18 04:15 Dose: 60 mg Triamcinolone Acetonide (Triamcinolone 0.025% Oint *) 1 applic TOPICAL BID [facility] Last Admin: 11/23/18 08:38 Dose: 1 applic Vital Signs - 8 hr 11/23/18 11/23/18 03:15 07:15 Temperature 98.3 F 97.9 F Pulse Rate 99 101 Respiratory 16 22 Rate Blood Pressure 110/60 143/75 (mmHg) O2 Sat by Pulse 94 98 Oximetry Oxygen Devices in Use Now: None Appearance: 38 yo M in nAD, aAOx3 Eyes: No Scleral Icterus, PERRLA Ears/Nose/Mouth/Throat: NL Teeth, Lips, Gums Neck: NL Appearance and Movements; NL JVP Respiratory: Symmetrical Chest Expansion and Respiratory Effort, Clear to Auscultation Cardiovascular: NL Sounds; No Murmurs; No JVD Abdominal: NL Sounds; No Tenderness; No Distention Lymphatic: No Cervical Adenopathy Extremities: No Clubbing, Cyanosis, - - left calf with mild edema and bluish discoloration of medial aspect of left calf at 5 cm in diam , colder to touch c/ w remaining skin Skin: No Nodules or Sclerosis, - - diffuse rash resembling e. multiforme on b/l thighs, back and abd is improving, no rah on face Neurological: Alert and Oriented x 3, NL Muscle Strength and Tone Result Diagrams: 11/21/18 11:22 11/21/18 11:22 Additional Lab and Data: Lab Results 11/19/18 11/19/18 11/19/18 Range/Units 05:37 05:38 05:38 WBC 9.5 (3.5-10.8) 10^3/uL RBC 4.57 (4.18-5.48) 10^6 /uL Hgb 15.4 (14.0-18.0) g/dL Hct 44 (42-52) % MCV 96 H (80-94) fL MCH 34 H (27-31) pg MCHC 35 (31-36) g/dL RDW 12 (10-15) % Plt Count 225 (150-450) 10^3/uL MPV 7.6 (7.4-10.4) fL Neut % (Auto) 85.5 % Lymph % (Auto) 8.4 % [place] % (Auto) 4.8 % Eos % (Auto) 1.1 % Baso % (Auto) 0.2 % Absolute Neuts (auto) 8.1 H (1.5-7.7) 10^3/ul Absolute Lymphs (auto) 0.8 L (1.0-4.8) 10^3/ul Absolute Monos (auto) 0.5 (0-0.8) 10^3/ul Absolute Eos (auto) 0.1 (0-0.6) 10^3/ul Absolute Basos (auto) 0.0 (0-0.2) 10^3/ul Absolute Nucleated RBC 0.0 10^3/ul Nucleated RBC % 0.1 Sodium 136 (135-145) mmol/L Potassium 4.0 (3.5-5.0) mmol/L Chloride 104 (101-111) mmol/L Carbon Dioxide 26 (22-32) mmol/L Anion Gap 6 (2-11) mmol/L BUN 9 (6-24) mg/dL Creatinine 0.71 (0.67-1.17) mg/dL Est GFR ( Amer) 150.2 (>60) Est GFR (Non-Af Amer) 124.2 (>60) BUN/Creatinine Ratio 12.7 (8-20) Glucose 114 H (70-100) mg/dL Calcium 8.7 (8.6-10.3) mg/dL Total Bilirubin 0.90 (0.2-1.0) mg/dL AST 15 (13-39) U/L ALT 18 (7-52) U/L Alkaline Phosphatase 55 (34-104) U/L Troponin I 0.02 (<0.04) ng/mL B-Natriuretic Peptide 66 (<=100) pg/mL Total Protein 6.7 (6.4-8.9) g/dL Albumin 3.8 (3.2-5.2) g/dL Globulin 2.9 (2-4) g/dL Albumin/Globulin Ratio 1.3 (1-3) Microbiology and Other Data: Microbiology 11/20/18 10:35 Gram Stain - Final Sputum 11/19/18 18:30 Legionella Urinary Antigen - Final Urine Negative Legionella Antigen Streptococcus pneumoniae Ag Screen - Final Negative S. pneumo Antigen 11/19/18 06:07 Aerobic Blood Culture - Preliminary Blood Venous No Growth Day 1 Anaerobic Blood Culture - Preliminary No Growth Day 1 11/19/18 06:07 Aerobic Blood Culture - Preliminary Blood Venous No Growth Day 1 Anaerobic Blood Culture - Preliminary No Growth Day 1 Assess/Plan/Problems-Billing Assessment: 38 yo M presents with RUL PNA and hypoxemia - Patient Problems (1) Pneumonia Comment: community acquired. today pt's lungs are clear on ascultation Ceftriaxone/Azithro stopped due to rash on 11/20/18, Levaquin started 11/21/18, stopped 11/22/18. doxy started on 11/23/18 AM. Blood cx neg Strep pneumo, legionella antigen neg IS and flutter valve cont (2) Erythema multiforme Comment: Pt's rash is overall better, but today he has more of it on thighs will cont IV steroids for now. likely due to Ceftriaxone, but both Ceftriaxone and Azithromycin stopped. Levaquin started 11/21, stopped 11/22/18.On Doxy now Cont triamcinalone cream, cont Solu Medrol, benadryl, Pepcid (3) DVT prophylaxis Comment: ambulation, low risk Status and Disposition: OBV changed to inpatient
[2018-11-23 11:15] LABS: ABS Lymphocytes 0.9 10^3/ul (1.0-4.8); ABS Monocytes 0.2 10^3/ul (0-0.8); ABS Neutrophils 11.7 10^3/ul (1.5-7.7); Hematocrit 45 % (42-52); Hemoglobin 15.7 g/dL (14.0-18.0); Lymphocyte % 6.8 %; Mean Corpuscular HGB Conc 35 g/dL (31-36); Mean Corpuscular Hemoglobin 34 pg (27-31); Mean Corpuscular Volume 97 fL (80-94); Mean Platelet Volume 7.8 fL (7.4-10.4); Platelet Count 345 10^3/uL (150-450); Red Blood Count 4.65 10^6 /uL (4.18-5.48); Red Cell Distribution Width 12 % (10-15); White Blood Count 12.8 10^3/uL (3.5-10.8)
[2018-11-23 11:30] LABS: Albumin 3.9 g/dL (3.2-5.2); Albumin/Globulin Ratio 1.6 (1-3); BUN/Creatinine Ratio 27.5 (8-20); C Reactive Protein 67.22 mg/L (<8.01); Calcium 8.9 mg/dL (8.6-10.3); EGFR African American 130.9 (>60); EGFR Non-African American 108.2 (>60); Globulin 2.5 g/dL (2-4); Potassium 4.4 mmol/L (3.5-5.0); Total Bilirubin 0.3 mg/dL (0.2-1.0); Total Protein 6.4 g/dL (6.4-8.9)
--- NOTE | 2018-11-23 12:09 | CONS ---
CONSULTATION REPORT: DATE OF CONSULTATION: 11/23/18 REQUESTING PROVIDER: Dr. Andre. CONSULTING SERVICE: Infectious Disease. REASON FOR CONSULTATION: Rash. IMPRESSION: 1. Admitted with right upper lobe pneumonia, improving on antibiotics, this was community acquired pneumonia, bacterial versus viral. His influenza PCR was negative. Diffuse erythematous rash. It is somewhat confluent on his trunk and on his extremities. It looks like erythema multiforme. He does have a little bit of conjunctival injection and facial swelling as well. This is either a reaction to his infection, ceftriaxone, azithromycin, or Levaquin that he took, it will be hard to know. He does have a history of an amoxicillin rash that caused hives which might make the cephalosporin a little more likely to be the cause. 2. Morbid obesity. 3. Vitiligo. RECOMMENDATIONS: Agree with doxycycline, oral corticosteroid for short course, Benadryl, and H2 silva. I discussed with them that it will probably take a few more days for this rash to run its course and he could follow up with an [employer] fscm developer to see if there is further testing available to help decide on possible other antibiotics he may be allergic to. Repeat chest x-ray in 1 month. HISTORY OF PRESENT ILLNESS: A 38-year-old man who has had a few days of cough, chest pain, and fever, because of those symptoms came to the hospital on the . He did have a couple of spots of redness on the leg and chest before he came to the hospital as well. Here a chest x-ray showed right upper lobe infiltrate. It does spare the apex. He has been afebrile. He had a CRP of 200. Blood cultures negative. Legionella, pneumococcal and influenza studies were negative. A sputum culture was obtained. The Gram stain showed gram- positive cocci, gram-negative bacilli, gram-positive bacilli, and grew yeast and normal micaela. Over the weekend, he developed some red itchy spots on his arms and legs, they come and go during the course of the day. He had a little bit of lip and face swelling as well. He had noticed some redness in his eyes. No sores in his mouth, penis, hands or feet. He has been on corticosteroids, H1 and H2 blockers with some slow improvement in the rash. He is concerned he is going to have it forever. PAST MEDICAL HISTORY: 1. Morbid obesity. 2. Vitiligo. MEDICATIONS: 1. Tylenol. 2. Flexeril. 3. Benadryl. 4. Doxycycline 100 mg by mouth twice a day. 5. Famotidine. 6. Hydroxyzine as needed. 7. Methylprednisone. 8. Triamcinolone topical. ALLERGIES: AUGMENTIN caused urticaria. FAMILY HISTORY: Father with diabetes. 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 Lives with his kids. He drinks alcohol occasionally. Does not use tobacco. REVIEW OF SYSTEMS: All negative, except as noted above to a 12-point review. PHYSICAL EXAM: Vital Signs: Temperature 36.6, heart rate 100, respiratory rate 22, blood pressure 143/75, oxygen saturation 98% on room air. In general, he is awake, not in distress. Neurologic: He is oriented x3, follows all commands. HEENT: There is mild conjunctival injection bilaterally. Oropharynx , there are no lesions. There is slight diffuse facial edema and erythema. Neck is supple. Heart has regular rate and rhythm without murmurs, rubs, or gallops. Lungs are clear to auscultation bilaterally. Abdomen: Soft, nontender. It is obese. I cannot detect the spleen. Skin: There is erythematous confluent rash on his back and in proximal upper and lower extremities bilaterally there are round erythematous macules with central clearing. DIAGNOSTIC STUDIES/LAB DATA: White blood cell count 8.8, hemoglobin 15, platelets 268,000. Creatinine is 0.8. Please see impressions and recommendations outlined above that I discussed with Dr. Andre. Thank you for asking me to see Mr. Calderon in consultation. [id number]/[facility] #: [id number] [facility]ITALBella
[2018-11-23] MEDS: diPHENhydraMINE PO* 50 MG PO PRN ×2 (13:04→19:53)
[2018-11-24] MEDS: diPHENhydraMINE PO* 50 MG PO PRN (04:13)
[2018-11-24] MEDS: methylPREDNISolone 125 MG* 2 ML VIAL IV SCH ×2 (04:14→12:12)
[2018-11-24] MEDS: Famotidine IV* 10 MG/ML 2 ML (20 mg) IV SLOW PU SCH (09:14)
[2018-11-24] MEDS: Triamcinolone 0.025% OINT * 15 GM TUBE TOPICAL SCH (09:14)
[2018-11-24] MEDS: DOXYcycline CAP(*) 100 MG PO SCH (09:14)
[2018-11-24 10:46] VITALS: BP 116/60
--- NOTE | 2018-11-24 11:04 | PN ---
Progress Note - Progress Note Date of Service: 11/24/18 SOAP: Subjective: CC: Community acquired pneumonia HPI: Mr. Calderon is a 38 yo male with PMH significant for morbid obesity, and vitiligo; who presented to the emergency room with complaints of cough chest pain and fever. Denies fever, chills, shortness of breath, cough, nausea, vomiting, or diarrhea. He continues to have a diffuse rash to comes and goes to his torso and extremities. History of tongue swelling with amoxicillin in the past. He has tolerated Azithromycin without difficulty in the past. Objective: Vital Signs - 8 hr 11/24/18 11/24/18 11/24/18 06:51 07:15 08:00 Temperature 97.8 F Pulse Rate 85 Respiratory 16 20 20 Rate Blood Pressure 116/60 (mmHg) O2 Sat by Pulse 96 Oximetry Physical Exam: General: NAD, standing in the room HEENT: Moist MM, no thrush Cardiovascular: Heart rate regular Respiratory: Lung sounds clear bilateral Abdominal: Bowel sounds present; ABD soft, non tender and large Skin: Diffuse rash to torso and extremities, the rash is erythematous and confluent on the back and upper extremities. The rash on the legs is round erythematous macules with central clearing. Laboratory Results - last 24 hr 11/23/18 11/23/18 11:01 11:01 WBC 12.8 H RBC 4.65 Hgb 15.7 Hct 45 MCV 97 H MCH 34 H MCHC 35 RDW 12 Plt Count 345 MPV 7.8 Neut % (Auto) 91.3 Lymph % (Auto) 6.8 [place] % (Auto) 1.8 Eos % (Auto) 0.0 Baso % (Auto) 0.1 Absolute Neuts (auto) 11.7 H Absolute Lymphs (auto) 0.9 L Absolute Monos (auto) 0.2 Absolute Eos (auto) 0.0 Absolute Basos (auto) 0.0 Absolute Nucleated RBC 0.0 Nucleated RBC % 0.0 Sodium 138 Potassium 4.4 Chloride 103 Carbon Dioxide 29 Anion Gap 6 BUN 22 Creatinine 0.80 Est GFR ( Amer) 130.9 Est GFR (Non-Af Amer) 108.2 BUN/Creatinine Ratio 27.5 H Glucose 159 H Calcium 8.9 Total Bilirubin 0.30 AST 18 ALT 35 Alkaline Phosphatase 53 C-Reactive Protein 67.22 H Total Protein 6.4 Albumin 3.9 Globulin 2.5 Albumin/Globulin Ratio 1.6 Microbiology 11/19/18 06:07 Aerobic Blood Culture - Final Blood Venous No Growth Day 5 Anaerobic Blood Culture - Final No Growth Day 5 11/19/18 06:07 Aerobic Blood Culture - Final Blood Venous No Growth Day 5 Anaerobic Blood Culture - Final No Growth Day 5 11/20/18 10:35 Gram Stain - Final Sputum Sputum Culture - Final YEAST Normal Micaela 11/19/18 18:30 Legionella Urinary Antigen - Final Urine Negative Legionella Antigen Streptococcus pneumoniae Ag Screen - Final Negative S. pneumo Antigen Assessment: 1. Community acquired right upper lobe PNA. Diff dx: viral vs bacterial. Legionella and S. pneumoniae urine antigens negative. Blood cultures with no growth to date. Sputum culture with Yeast and normal micaela. 2. Rash. Suspect secondary to one of the ABX that he took, Levaquin, Ceftriaxone , or Azithromycin. 3. Morbid obesity. BMI 55.3 4. Amoxicillin allergy. Plan: Continue Doxycycline to complete a 5-7 day course of ABX. He should have a followup chest xray in 1 month. Recommend following with an oleo hasher and renderer for ABX allergy testing outpatient.
--- NOTE | 2018-11-24 14:20 | DS ---
CC: Dr. Ulloa; [facility] Morris Tena, [facility]; Dr. Lomeli * DISCHARGE SUMMARY: DATE OF ADMISSION: 11/19/18 DATE OF DISCHARGE: 11/24/18 PRIMARY CARE PROVIDER: Dr. Ulloa. DISPOSITION ON DISCHARGE: Home. CONDITION ON DISCHARGE: Stable. DISCHARGE DIAGNOSES: 1. Right upper lobe pneumonia. 2. Erythema multiforme, likely drug reaction related to allergy to likely ceftriaxone, but Levaquin reaction could not be ruled out. SECONDARY DIAGNOSES: 1. History of obstructive sleep apnea, on CPAP at home. 2. History of vitiligo. MEDICATIONS AT DISCHARGE: Include: 1. Prednisone taper at 60 mg daily for 2 days, then 40 mg daily for 2 days, then 20 mg daily for 2 days, then 10 mg daily for 2 days, then stop. 2. Benadryl 50 mg every 6 hours for rash, itching, allergy symptoms. 3. Triamcinolone ointment 0.025% one application b.i.d. to affected rash. 4. Flexor 10 mg b.i.d. p.r.n. CONSULTATIONS DURING THE HOSPITAL STAY: Dr. Lomeli from Infectious Diseases. LABORATORY DATA AND STUDIES PERFORMED DURING THE HOSPITAL STAY: Included: Venous Doppler study obtained on 11/23/18 showed no left lower extremity thrombosis. Most recent labs on 11/23/18 shows white blood cell count of 12.8, hemoglobin of 15.7, hematocrit of 45, MCV of 97, platelets of 345. Sodium was 138, potassium 4.4, chloride 103, carbon dioxide 26, BUN 22, creatinine 0.8. Liver function test unremarkable. C-reactive protein down to 67 from initial 193 level at admission. Influenza testing was negative at admission. Portable chest x-ray on admission, impression: "Right upper lung consolidation , recommend followup on resolution to exclude underlying pulmonary parenchymal pathology." HOSPITALIZATION COURSE: Mr. Calderon is a 38-year-old male with history of obesity, obstructive sleep apnea, who presented to the hospital complaining of cough and not feeling well and low-grade fevers. The patient also stated that he had "insect bites" for which he was treated outpatient with doxycycline. His chest x-ray shows rather impressive right upper lobe pneumonia and he was placed initially on observation. His oxygen saturations were low when he ambulating and dropped to the 80s on room air when ambulating. He received Levaquin in the emergency department and later on, he was switched to ceftriaxone and azithromycin while inpatient. On 11/21/18, he was noted to have rash in the evening, mostly truncal. His antibiotics at that point were switched from ceftriaxone and azithromycin back to Levaquin. He was placed on steroids, but he continued to have rash and on 11/22/18, he noted that his lower lip was swollen. His rash continues to appear and reappear in different parts of his body, most of the time it was mostly related to the trunk in the abdomen and lower back, but also started spreading in bilateral upper and lower extremities, was very pruritic. Initially, we tried Benadryl which the patient thought that it did not work, then we switched to Atarax, which made the patient sleepy and eventually we went back to Benadryl. When the rash continued to be progressive and fluctuating for the next couple of days, his antibiotics were changed again back to doxycycline and his Levaquin was discontinued. The thought was that the Levaquin that the patient was given in the emergency department could have also be the cause of his reaction. The patient was diagnosed with erythema multiforme like rash and treated with IV steroids as well as Pepcid and Benadryl. On 11/23/18, the patient was seen by Dr. Lomeli from Infectious Diseases who agreed with a diagnosis of likely drug reaction rash and once again it could be likely ceftriaxone due to the patient's history of allergy to AUGMENTIN, but could also be Levaquin. The patient was continued with doxycycline throughout his hospital stay. His rash eventually started getting better and appears to have been migrating distally. On the day of discharge, his truncal rash is much improved and scant amount of it on the lower abdomen, but he still has significant rash in bilateral upper and lower extremities. His lip rash definitely resolved and he never had evidence of tongue swelling or problems with airway. Please note that this rash was changing, caused a significant anxiety for the patient. He did notice that may be his left calf was swollen on 11/23/18 and a Doppler showed no evidence of DVT. Finally by 11/24/18, the patient noted that his rash was actually getting better and his pruritus may have resolved. At that point, his IV steroid was stopped and the patient was placed on prednisone p.o. He is going to be discharged home. Due to that that he completed already 6 days of IV antibiotics, I will not prescribe for the patient to continue antibiotics at home. He would be only placed on steroid taper and Benadryl as needed. It is recommended to follow up with his primary care provider in 4 to 7 days. The patient also recommended to follow up with Dr. Morris Tena from [facility] in [place] for followup in approximately 1 to 2 weeks in regards to further evaluation for his allergies. PHYSICAL EXAMINATION AT THE TIME OF DISCHARGE: Blood pressure of 116/60, heart rate of 85 and regular, respiratory rate of 20, oxygen saturation 96% on room air, and temperature 97.8. General Appearance: This is a very pleasant 38-year -old obese male who is in no acute distress. Alert, awake, and oriented x3. HEENT: Head: Atraumatic and normocephalic. Eyes: Pupils are equal, round, and reactive to light and accommodation. Oropharynx clear. Mucosa moist. Neck : Supple. No JVD. No bruits bilaterally. Cardiovascular: Regular rate and rhythm. No murmur. Respiratory: Clear to auscultation bilaterally. Abdomen: Soft and nontender. Bowel sounds present in all 4 quadrants. Extremities: There is trace bilateral ankle edema. Pulses are +2 bilaterally. There is no clubbing or cyanosis. On evaluation of the skin, the patient has erythema migrans like rash in bilateral upper and lower extremities. There is a scant amount of the rash on the lower abdomen and back appears to have resolved. There is no evidence of blistering or open areas. Please note that this is a short summary of the patient's hospital stay. Please refer to further medical records for details. [id number]/CPS #: [id number] MTDD
== END 2018-11-24 13:30 | disposition home or self-care (01) | DRG 139 ==
LOC: ED 04:18 → MED 08:05 → OBSVTOIN 11-21 15:00
PROVIDERS: ADMIT Internal Medicine; ATTEND Internal Medicine
DX: J18.1 Lobar pneumonia, unspecified organism (principal); Z68.43 Body mass index [BMI] 50.0-59.9, adult; L51.9 Erythema multiforme, unspecified; T36.8X5A Adverse effect of other systemic antibiotics, initial encounter; Y92.230 Patient room in hospital as the place of occurrence of the external cause; G47.33 Obstructive sleep apnea (adult) (pediatric); E66.9 Obesity, unspecified; L80 Vitiligo; M79.89 Other specified soft tissue disorders; Z79.899 Other long term (current) drug therapy; Z88.1 Allergy status to other antibiotic agents; Z88.8 Allergy status to other drugs, medicaments and biological substances; Z83.3 Family history of diabetes mellitus; Z80.9 Family history of malignant neoplasm, unspecified
CPT/HCPCS: 36415; 71046; 80048; 80053; 83605; 83880; 84484; 85025; 86140; 87040; 87070; 87205; 87899; 93005; 94640; 99285; A9270-GY; G0378; J0456; J0696; J1885; J2920; J2930

== ENCOUNTER 2018-11-30 18:43 | Emergency (ER) | payer BC ==
[2018-11-30 22:35] LABS: ABS Eosinophils 0.3 10^3/ul (0-0.6); ABS Lymphocytes 1.9 10^3/ul (1.0-4.8); ABS Monocytes 0.5 10^3/ul (0-0.8); ABS Neutrophils 6.4 10^3/ul (1.5-7.7); Eosinophil % 2.8 %; Hematocrit 47 % (42-52); Hemoglobin 16.3 g/dL (14.0-18.0); Mean Corpuscular HGB Conc 35 g/dL (31-36); Mean Corpuscular Hemoglobin 34 pg (27-31); Mean Corpuscular Volume 97 fL (80-94); Mean Platelet Volume 7.3 fL (7.4-10.4); Platelet Count 301 10^3/uL (150-450); Red Blood Count 4.84 10^6 /uL (4.18-5.48); Red Cell Distribution Width 12 % (10-15); White Blood Count 9.1 10^3/uL (3.5-10.8)
[2018-11-30] MEDS ORDERED: Pantoprazole IV* 40 MG IV ONE (22:44)
[2018-11-30 22:50] LABS: Albumin 4.1 g/dL (3.2-5.2); Albumin/Globulin Ratio 1.5 (1-3); BUN/Creatinine Ratio 20.5 (8-20); C Reactive Protein 44.67 mg/L (<8.01); Calcium 8.9 mg/dL (8.6-10.3); EGFR African American 125.5 (>60); EGFR Non-African American 103.7 (>60); Globulin 2.8 g/dL (2-4); Potassium 4.3 mmol/L (3.5-5.0); Total Bilirubin 0.6 mg/dL (0.2-1.0); Total Protein 6.9 g/dL (6.4-8.9)
--- NOTE | 2018-11-30 23:16 | ED ---
GI/ HPI - HPI Summary HPI Summary: 38 year old male presents with abdominal pain for the past couple days. He states that it started after he was placed on steroids for his pneumonia. He states pain is in his epigastric. He states food makes it worse. He denies any dark tarry stool. No blood in his stool. Denies any nausea vomiting. He admits to some constipation. No diarrhea. No urinary symptoms. Has never had this pain before. No previous belly surgeries. Denies any chest or shortness breath. He states it feels like the pneumonia has resolved. - History of Current Complaint Chief Complaint: EDAbdPain Time Seen by Provider: 11/30/18 22:37 Stated Complaint: ABD PAIN PER PT Pain Intensity: 8 - Additional Pertinent History Primary Care Physician: MICHAEL - Allergy/Home Medications Allergies/Adverse Reactions: Allergies Allergy/AdvReac Type Severity Reaction Status Date / Time amoxicillin [From Augmentin] Allergy Swelling Verified 11/30/18 18:55 Of Face,Lips,& Throat clavulanic acid Allergy Swelling Verified 11/30/18 18:55 [From Augmentin] Of Face,Lips,& Throat PMH/Surg Hx/FS Hx/Imm Hx Endocrine/Hematology History: Denies: Hx Anticoagulant Therapy Cardiovascular History: Denies: Hx Pacemaker/ICD Sensory History: Denies: Hx Contacts or Glasses, Hx Legally Blind, Hx Deafness, Hx Hearing Aid Opthamlomology History: Denies: Hx Contacts or Glasses, Hx Legally Blind Psychiatric History: Denies: Hx Panic Disorder Infectious Disease History: No Infectious Disease History: Denies: Traveled Outside the [place] in Last 30 Days - Family History Known Family History: Positive: Hypertension Negative: Diabetes - Social History Alcohol Use: Weekly Hx Substance Use: No Substance Use Type: Reports: None Hx Tobacco Use: Yes Smoking Status (MU): Never Smoked Tobacco Review of Systems Negative: Fever Negative: Chest Pain Negative: Shortness Of Breath Positive: Abdominal Pain All Other Systems Reviewed And Are Negative: Yes Physical Exam Triage Information Reviewed: Yes Vital Signs On Initial Exam: Initial Vitals Temp Pulse Resp BP Pulse Ox 98.7 F 95 20 153/105 94 11/30/18 18:51 11/30/18 18:51 11/30/18 18:51 11/30/18 18:51 11/30/18 18:51 Vital Signs Reviewed: Yes Appearance: Positive: Well-Appearing Skin: Positive: Warm, Dry Head/Face: Positive: Normal Head/Face Inspection Eyes: Positive: Normal, Conjunctiva Clear ENT: Positive: Pharynx normal, TMs normal, Other - thrush present on tongue Respiratory/Lung Sounds: Positive: Clear to Auscultation, Breath Sounds Present Cardiovascular: Positive: Normal, RRR Abdomen Description: Positive: Soft, Other: - epigastric pain Bowel Sounds: Positive: Present Musculoskeletal: Positive: Normal Neurological: Positive: Normal Psychiatric: Positive: Normal Diagnostics - Vital Signs Vital Signs Temp Pulse Resp BP Pulse Ox 11/30/18 22:55 83 118/90 95 11/30/18 22:54 83 96 11/30/18 21:15 98.3 F 88 16 164/112 96 11/30/18 18:51 98.7 F 95 20 153/105 94 - Laboratory Lab Results: Lab Results 11/30/18 11/30/18 11/30/18 Range/Units 22:26 22:26 22:26 WBC 9.1 (3.5-10.8) 10^3/uL RBC 4.84 (4.18-5.48) 10^6 /uL Hgb 16.3 (14.0-18.0) g/dL Hct 47 (42-52) % MCV 97 H (80-94) fL MCH 34 H (27-31) pg MCHC 35 (31-36) g/dL RDW 12 (10-15) % Plt Count 301 (150-450) 10^3/uL MPV 7.3 L (7.4-10.4) fL Neut % (Auto) 69.8 % Lymph % (Auto) 21.0 % Nash % (Auto) 5.9 % Eos % (Auto) 2.8 % Baso % (Auto) 0.5 % Absolute Neuts (auto) 6.4 (1.5-7.7) 10^3/ul Absolute Lymphs (auto) 1.9 (1.0-4.8) 10^3/ul Absolute Monos (auto) 0.5 (0-0.8) 10^3/ul Absolute Eos (auto) 0.3 (0-0.6) 10^3/ul Absolute Basos (auto) 0.0 (0-0.2) 10^3/ul Absolute Nucleated RBC 0.0 10^3/ul Nucleated RBC % 0.0 Sodium 136 (135-145) mmol/L Potassium 4.3 (3.5-5.0) mmol/L Chloride 102 (101-111) mmol/L Carbon Dioxide 27 (22-32) mmol/L Anion Gap 7 (2-11) mmol/L BUN 17 (6-24) mg/dL Creatinine 0.83 (0.67-1.17) mg/dL Est GFR ( Amer) 125.5 (>60) Est GFR (Non-Af Amer) 103.7 (>60) BUN/Creatinine Ratio 20.5 H (8-20) Glucose 101 H (70-100) mg/dL Lactic Acid 0.8 (0.5-2.0) mmol/L Calcium 8.9 (8.6-10.3) mg/dL Total Bilirubin 0.60 (0.2-1.0) mg/dL AST 16 (13-39) U/L ALT 45 (7-52) U/L Alkaline Phosphatase 61 (34-104) U/L C-Reactive Protein 44.67 H (<8.01) mg/L Total Protein 6.9 (6.4-8.9) g/dL Albumin 4.1 (3.2-5.2) g/dL Globulin 2.8 (2-4) g/dL Albumin/Globulin Ratio 1.5 (1-3) Result Diagrams: 11/30/18 22:26 11/30/18 22:26 Lab Statement: Any lab studies that have been ordered have been reviewed, and results considered in the medical decision making process. - Radiology chest Radiology Interpretation Completed By: ED Physician Summary of Radiographic Findings: resolved pneumonia - Ultrasound No standard instances Ultrasound Interpretation Completed By: Radiologist Summary of Ultrasound Findings: IMPRESSION: 1. No acute findings, but the study was limited by bowel gas. 2. 6 mm nonmobile gallstone versus polyp. No gallbladder wall thickening. Common bile duct not visualized secondary to bowel gas. 3. Common bile duct obscured by bowel gas. 4. Hepatic steatosis. Mildly enlarged right lobe of liver. GIGU Course/Dx - Course Course Of Treatment: 38 year old male presents with abdominal pain for the past couple days. He states that it started after he was placed on steroids for his pneumonia. He states pain is in his epigastric. He states food makes it worse. He denies any dark tarry stool. No blood in his stool. Denies any nausea vomiting. He admits to some constipation. No diarrhea. No urinary symptoms. Has never had this pain before. No previous belly surgeries. Denies any chest or shortness breath. He states it feels like the pneumonia has resolved. On exam tenderness epigastric. No rebound. wbc normal. CRP elevated. Chest x-ray shows improving pneumonia. Patient also has thrush in the mouth. lipase is slightly elevated and amylase is normal so does not meet criteria for pancreatitis. gallbladder u/s shows no cholecytitis. will treat with fluoconazole for thrush due to oral thrush with epigastric pain concern for esophagitis. will start on course of omeprazole. will have follow up with primary. gave referral to GI. patient understand and agrees with plan. - Diagnoses Differential Diagnoses - Male: Gall Bladder Disease, Gastritis, Other - thrush Provider Diagnoses: Thrush, Epigastric pain Discharge ED - Sign-Out/Discharge Documenting (check all that apply): Patient Departure Patient Received Moderate/Deep Sedation with Procedure: No - Discharge Plan Condition: Good Disposition: HOME Prescriptions: Fluconazole [Fluconazole 200 mg tab] 200 mg PO DAILY #6 tablet Omeprazole 20 mg PO DAILY #13 capsule. Patient Education Materials: Oral Candidiasis (ED), Epigastric Pain (ED) Referrals: Augustin Ulloa MD [Primary Care Provider] - Additional Instructions: take fluconazole once a day for 6 days Take omeprazole once a day for 2 weeks follow up with primary follow up with GI if no improvement Return to ED if develop any new or worsening symptoms - Billing Disposition and Condition Condition: GOOD Disposition: Home
[2018-11-30] MEDS ORDERED: NS 0.9% 1000 ML** 1,000 ML IV ONE (23:37)
[2018-12-01] MEDS ORDERED: Fluconazole 100 MG TAB* TAB PO ONE (00:57)
[2018-12-01 02:03] VITALS: BP 102/79
== END 2018-12-01 02:01 | disposition home or self-care (01) ==
LOC: ED 18:43
DX: R10.13 Epigastric pain (principal); B37.0 Candidal stomatitis; Z88.1 Allergy status to other antibiotic agents; Z79.899 Other long term (current) drug therapy
CPT/HCPCS: 36415; 71046; 76705; 80053; 82150; 83605; 83690; 85025; 86140; 87040; 96361; 96374; 99282; A9270-GY

== ENCOUNTER 2019-08-16 03:42 | Inpatient (IN) ==
[2019-08-16 04:42] LABS: ABS Lymphocytes 1.2 10^3/ul (1.0-4.8); ABS Monocytes 0.4 10^3/ul (0-0.8); Eosinophil % 0.6 %; Hematocrit 45 % (42-52); Hemoglobin 15.8 g/dL (14.0-18.0); Lymphocyte % 16.1 %; Mean Corpuscular HGB Conc 35 g/dL (31-36); Mean Corpuscular Hemoglobin 34 pg (27-31); Mean Corpuscular Volume 95 fL (80-94); Mean Platelet Volume 8.3 fL (7.4-10.4); Nucleated Red Blood Cells % 0.1; Platelet Count 203 10^3/uL (150-450); Red Blood Count 4.69 10^6 /uL (4.18-5.48); Red Cell Distribution Width 12 % (10-15); White Blood Count 7.5 10^3/uL (3.5-10.8)
[2019-08-16 04:59] LABS: ALT 26 U/L (7-52); AST 17 U/L (13-39); Albumin 3.9 g/dL (3.2-5.2); Albumin/Globulin Ratio 1.6 (1-3); Alkaline Phosphatase 63 U/L (34-104); Anion Gap 7 mmol/L (2-11); Blood Urea Nitrogen 16 mg/dL (6-24); C Reactive Protein 19.93 mg/L (<8.01); CO2 Carbon Dioxide 26 mmol/L (22-32); Calcium 8.5 mg/dL (8.6-10.3); Chloride 104 mmol/L (101-111); EGFR African American 123.7 (>60); EGFR Non-African American 102.3 (>60); Globulin 2.4 g/dL (2-4); Glucose 142 mg/dL (70-100); Sodium 137 mmol/L (135-145); Total Protein 6.3 g/dL (6.4-8.9)
[2019-08-16 05:03] LABS: INR 1.03 (0.82-1.09)
[2019-08-16 05:19] LABS: Troponin I 0.05 ng/mL (<0.03)
[2019-08-16 05:22] LABS: Alcohol, S < 10 mg/dL (<10)
[2019-08-16] MEDS ORDERED: Ondansetron 4 mg VIAL 2 MG/ML 2 ml VIAL IV PRN (05:31)
[2019-08-16] MEDS ORDERED: Furosemide 20 mg/2 ml IV VIAL IV ONE (05:35)
[2019-08-16 06:03] LABS: Cholesterol 157 mg/dL; HDL Cholesterol 31.7 mg/dL; LDL Cholesterol 101 mg/dL; Triglycerides 124 mg/dL
[2019-08-16] MEDS: Nystatin SUSPENSION 100,000 UNITS/ML UDC PO SCH ×4 (07:17→21:39)
[2019-08-16] MEDS: Aspirin EC 81 mg TAB.EC (enteric coated) PO SCH (07:17)
[2019-08-16] MEDS ORDERED: Perflutren Lipid Microsphere 3 ML VIAL ONE (08:03)
[2019-08-16 09:12] LABS: Troponin I 0.04 ng/mL (<0.03)
[2019-08-16 10:25] LABS: HIV 4th Generation Nonreactive (Nonreactive)
[2019-08-16] MEDS ORDERED: Diazepam 5 mg TAB (*) PO PRN (13:50)
[2019-08-16] MEDS ORDERED: diPHENhydraMINE 25 mg TAB PO PRN (13:50)
[2019-08-16 14:58] LABS: Anion Gap 5 mmol/L (2-11); BUN/Creatinine Ratio 13.4 (8-20); Blood Urea Nitrogen 13 mg/dL (6-24); CO2 Carbon Dioxide 31 mmol/L (22-32); Calcium 9.2 mg/dL (8.6-10.3); Chloride 102 mmol/L (101-111); EGFR African American 104.8 (>60); EGFR Non-African American 86.6 (>60); Glucose 100 mg/dL (70-100); Sodium 138 mmol/L (135-145)
[2019-08-16 14:59] LABS: Troponin I 0.05 ng/mL (<0.03)
[2019-08-17] MEDS ORDERED: NS 0.9% 1000 ml BAG 1,000 ML IV SCH (00:01)
[2019-08-17 06:33] LABS: ABS Eosinophils 0.1 10^3/ul (0-0.6); ABS Lymphocytes 1.7 10^3/ul (1.0-4.8); ABS Monocytes 0.5 10^3/ul (0-0.8); Hematocrit 45 % (42-52); Hemoglobin 15.5 g/dL (14.0-18.0); Lymphocyte % 27.1 %; Mean Corpuscular HGB Conc 35 g/dL (31-36); Mean Corpuscular Hemoglobin 34 pg (27-31); Mean Corpuscular Volume 96 fL (80-94); Mean Platelet Volume 8.3 fL (7.4-10.4); Platelet Count 208 10^3/uL (150-450); Red Blood Count 4.63 10^6 /uL (4.18-5.48); Red Cell Distribution Width 12 % (10-15); White Blood Count 6.1 10^3/uL (3.5-10.8)
[2019-08-17 06:52] LABS: Anion Gap 6 mmol/L (2-11); BUN/Creatinine Ratio 16.1 (8-20); Blood Urea Nitrogen 14 mg/dL (6-24); CO2 Carbon Dioxide 28 mmol/L (22-32); Calcium 8.8 mg/dL (8.6-10.3); Chloride 104 mmol/L (101-111); EGFR African American 118.8 (>60); EGFR Non-African American 98.2 (>60); Glucose 98 mg/dL (70-100); Magnesium 2.2 mg/dL (1.9-2.7); Potassium 4.2 mmol/L (3.5-5.0); Sodium 138 mmol/L (135-145)
[2019-08-17 06:57] LABS: Troponin I 0.05 ng/mL (<0.03)
[2019-08-17] MEDS: Aspirin EC 81 mg TAB.EC (enteric coated) PO SCH (07:42)
[2019-08-17] MEDS: Nystatin SUSPENSION 100,000 UNITS/ML UDC PO SCH ×3 (07:42→18:32)
[2019-08-17] MEDS ORDERED: Heparin 1,000 UNIT/ML CATH LAB 1,000 10 ml (10,000 UNITS) IV ONE (07:58)
[2019-08-17] MEDS ORDERED: Midazolam 5 mg/5 ml VIAL 1 mg/ml 5 ml VIAL (5 mg) ONE (07:58)
[2019-08-17] MEDS ORDERED: fentaNYL 100 mcg/2 ml 50 MCG/ML VIAL ONE (07:58)
[2019-08-17] MEDS ORDERED: VERAPAMIL 2.5 MG/ML 2 ML VIAL ** 5 mg/2 ml ONE (07:58)
[2019-08-17] MEDS ORDERED: nitroGLYCERIN DRIP 25,000 MCG/250 ML BTL ONE (07:59)
[2019-08-17] MEDS ORDERED: Lidocaine 1% VIAL 10 MG/ML VIAL ONE (07:59)
[2019-08-17] MEDS ORDERED: Heparin 2 UNITS/ML 1000 mls 2,000 ML IV ONE (07:59)
[2019-08-17] MEDS ORDERED: Iohexol 350 (CONTRAST) 200 ML MDV IV ONE ×2 (08:00)
[2019-08-17 19:14] VITALS: BP 116/58
== END 2019-08-17 18:45 | disposition home or self-care (01) | DRG 192 ==
LOC: ED 03:42 → MEDTELE 06:34
PROVIDERS: ADMIT Internal Medicine; ATTEND Internal Medicine

== ENCOUNTER 2020-07-12 05:42 | Observation (INO) ==
[2020-07-12 07:08] LABS: ABS Lymphocytes 0.6 10^3/ul (1.0-4.8); ABS Monocytes 0.3 10^3/ul (0-0.8); ABS Neutrophils 4.4 10^3/ul (1.5-7.7); Eosinophil % 0.4 %; Hematocrit 37 % (42-52); Hemoglobin 12.9 g/dL (14.0-18.0); Lymphocyte % 11.9 %; Mean Corpuscular HGB Conc 35 g/dL (31-36); Mean Corpuscular Hemoglobin 34 pg (27-31); Mean Corpuscular Volume 97 fL (80-94); Mean Platelet Volume 7.5 fL (7.4-10.4); Nucleated Red Blood Cells % 0.1; Platelet Count 196 10^3/uL (150-450); Red Blood Count 3.86 10^6 /uL (4.18-5.48); Red Cell Distribution Width 12 % (10-15); White Blood Count 5.4 10^3/uL (3.5-10.8)
[2020-07-12] MEDS ORDERED: Morphine 4 MG/ML VIAL (1 ml) IV ONE (07:26)
[2020-07-12] MEDS ORDERED: NS 0.9% 1000 ml BAG 1,000 ML IV ONE (07:26)
[2020-07-12 07:27] LABS: Albumin 4.2 g/dL (3.2-5.2); Albumin/Globulin Ratio 1.4 (1-3); C Reactive Protein 97.73 mg/L (<8.01); Calcium 8.8 mg/dL (8.6-10.3); EGFR African American 51.1 (>60); EGFR Non-African American 42.2 (>60); Globulin 2.9 g/dL (2-4); Potassium 4.7 mmol/L (3.5-5.0); Total Bilirubin 0.8 mg/dL (0.2-1.0); Total Protein 7.1 g/dL (6.4-8.9)
[2020-07-12] MEDS ORDERED: Ciprofloxacin 400mg IVPREMIX 400 MG/200 ML BAG IVPB ONE (08:08)
[2020-07-12] MEDS ORDERED: Ciprofloxacin 200mg IVPREMIX 200 MG/100 ML BAG IV ONE (08:11)
[2020-07-12 08:15] LABS: Urine Appearance Clear; Urine Bacteria Absent (Absent); Urine Bilirubin Negative (Negative); Urine Blood Negative (Negative); Urine Color Yellow; Urine Glucose Negative (Negative); Urine Ketones Negative (Negative); Urine Nitrite Negative (Negative); Urine Protein Negative (Negative); Urine Red Blood Cell Absent (Absent); Urine Squamous Epithelial Cell Present (Absent); Urine Urobilinogen Negative (Negative); Urine White Blood Cell 2+(11-20/hpf) (Absent)
[2020-07-12] MEDS ORDERED: Ondansetron ODT 4 mg TAB 4 MG TAB PO PRN (09:39)
[2020-07-12] MEDS ORDERED: Senna TAB 8.6 mg TAB PO PRN (09:49)
[2020-07-12] MEDS ORDERED: Morphine 4 MG/ML VIAL (1 ml) IV PRN (09:50)
[2020-07-12] MEDS: Morphine 2 MG/ML SYRINGE IV PRN ×2 (12:39→22:19)
[2020-07-12] MEDS ORDERED: Etomidate 20 mg/10 ml 2 MG/ML 10 ml VIAL ONE (16:54)
[2020-07-12] MEDS ORDERED: Midazolam 2 mg/2 ml VIAL 1 mg/ml 2 ml VIAL (2 mg) ONE (16:55)
[2020-07-12] MEDS ORDERED: fentaNYL 100 mcg/2 ml 50 MCG/ML VIAL ONE (16:55)
[2020-07-12] MEDS ORDERED: Ketamine HCL 50 mg/ml 10 ml VIAL (500 MG) ONE (16:55)
[2020-07-12] MEDS ORDERED: Rocuronium 50 mg VIAL 10 mg/ml 5 ml VIAL (50 mg) ONE (16:55)
[2020-07-12] MEDS ORDERED: Aztreonam 1 GM in NS 0.9% 50 ML 50 ML IV ONE (18:00)
[2020-07-12] MEDS ORDERED: Ondansetron 4 mg VIAL 2 MG/ML 2 ml VIAL ONE (19:23)
[2020-07-12] MEDS ORDERED: Phenylephrine 40 mcg/mL 10mL (400mcg) SYRINGE ONE (19:23)
[2020-07-12] MEDS ORDERED: Succinylcholine 200 mg VIAL 20 mg/ml 10 ml VIAL (200 mg) ONE (19:23)
[2020-07-12] MEDS ORDERED: Dexamethasone IV 4 MG/ML VIAL 1 ml VIAL ONE (19:23)
[2020-07-12] MEDS: Ciprofloxacin 400mg IVPREMIX 400 MG/200 ML BAG IVPB SCH (21:24)
[2020-07-13] MEDS: Morphine 2 MG/ML SYRINGE IV PRN (05:51)
[2020-07-13] MEDS ORDERED: Magnesium CITRATE LIQ 300 ML BTL PO ONE (07:35)
[2020-07-13 07:40] LABS: ABS Lymphocytes 0.4 10^3/ul (1.0-4.8); ABS Monocytes 0.2 10^3/ul (0-0.8); ABS Neutrophils 4.3 10^3/ul (1.5-7.7); Hematocrit 38 % (42-52); Hemoglobin 13.3 g/dL (14.0-18.0); Lymphocyte % 7.9 %; Mean Corpuscular HGB Conc 35 g/dL (31-36); Mean Corpuscular Hemoglobin 34 pg (27-31); Mean Corpuscular Volume 96 fL (80-94); Mean Platelet Volume 7.6 fL (7.4-10.4); Platelet Count 213 10^3/uL (150-450); Red Blood Count 3.97 10^6 /uL (4.18-5.48); Red Cell Distribution Width 12 % (10-15); White Blood Count 4.8 10^3/uL (3.5-10.8)
[2020-07-13 07:55] LABS: Calcium 9.1 mg/dL (8.6-10.3); EGFR African American 91.1 (>60); EGFR Non-African American 75.3 (>60); Magnesium 2.1 mg/dL (1.9-2.7)
[2020-07-13 07:59] LABS: Urine Creatinine Concentration 31.84 mg/dL
[2020-07-13] MEDS ORDERED: Sacubitril/Valsartan 97/103(NF) PO SCH (09:00)
[2020-07-13] MEDS: Ciprofloxacin 400mg IVPREMIX 400 MG/200 ML BAG IVPB SCH (10:29)
[2020-07-13 16:33] VITALS: BP 134/71
== END 2020-07-13 16:40 | disposition home or self-care (01) ==
LOC: ED 05:42 → MEDTELE 05:42
PROVIDERS: ADMIT Internal Medicine; ATTEND Internal Medicine

== ENCOUNTER 2020-12-19 06:10 | Inpatient (IN) ==
[2020-12-19] MEDS ORDERED: Heparin 5000 UNITS/ML 1 mL VIAL ONE (06:34)
[2020-12-19] MEDS ORDERED: Clindamycin 900 MG/D5W BAG 900 MG/50 ML BAG IVPB ONE (06:34)
[2020-12-19] MEDS ORDERED: Methylene Blue 0.5 % 50 MG/10 ML AMP IV ONE (07:09)
[2020-12-19] MEDS ORDERED: Bupivacaine 0.25% EPI 200,000 30 ML SDV ONE (07:10)
[2020-12-19] MEDS ORDERED: Ketamine HCL 50 mg/ml 10 ml VIAL (500 MG) ONE (07:37)
[2020-12-19] MEDS ORDERED: fentaNYL 100 mcg/2 ml 50 MCG/ML VIAL ONE (07:37)
[2020-12-19] MEDS ORDERED: Midazolam 2 mg/2 ml VIAL 1 mg/ml 2 ml VIAL (2 mg) ONE (07:37)
[2020-12-19] MEDS ORDERED: Rocuronium 50 mg VIAL 10 mg/ml 5 ml VIAL (50 mg) ONE ×3 (07:38→09:54)
[2020-12-19] MEDS ORDERED: Etomidate 20 mg/10 ml 2 MG/ML 10 ml VIAL ONE (07:39)
[2020-12-19] MEDS ORDERED: HYDROcodone/ACET. 7.5/325 LIQ 15 ML UDC PO PRN (10:47)
[2020-12-19] MEDS ORDERED: Ondansetron 4 mg VIAL 2 MG/ML 2 ml VIAL IV PRN ×2 (10:47→12:18)
[2020-12-19] MEDS ORDERED: HYDROmorphone 1 MG/1 ML SYRINGE ONE ×2 (11:01→11:26)
[2020-12-19] MEDS ORDERED: Acetaminophen IV 1 GM/100ML 100 ML IV ONE (12:09)
[2020-12-19] MEDS ORDERED: HYDROmorphone 1 MG/1 ML SYRINGE IV PRN (12:18)
[2020-12-19] MEDS ORDERED: Naloxone 0.4 mg VIAL 0.4 mg/ml 1 ml VIAL IV PRN (12:18)
[2020-12-19] MEDS: Lactated Ringers 1000 ml BAG 1,000 ML IV SCH ×2 (13:02→20:47)
[2020-12-19] MEDS: HYDROmorphone 0.5 MG/0.5 ML SYRINGE IV SLOW PU PRN ×2 (16:02→20:48)
[2020-12-20] MEDS: Lactated Ringers 1000 ml BAG 1,000 ML IV SCH (03:59)
[2020-12-20] MEDS ORDERED: D5W 1/2 NS KCl 20 meq 1000 ml 1,000 ML IV SCH (11:00)
[2020-12-20] MEDS ORDERED: Heparin 5000 UNITS/ML 1 mL VIAL SUBCUT SCH (11:00)
[2020-12-20 15:18] VITALS: BP 122/76
== END 2020-12-20 16:30 | disposition home or self-care (01) | DRG 403 ==
LOC: AA 06:10 → SSU 12:28
PROVIDERS: ADMIT Surgery; ATTEND Surgery